=== PATIENT | female | born 2005 ===

== ENCOUNTER 2023-12-22 13:06 | Emergency (ER) | payer SELFPAY ==
[2023-12-22 13:09] VITALS: BP 113/66; PULSE 72; RESP 16; TEMP 36.3; O2SAT 99
--- NOTE | 2023-12-22 17:03 | PC.NURSE ---
pt approached triage desk and states she is going to make an appt with primary care provider and would no longer like to be seen.
== END 2023-12-22 17:32 | disposition left against medical advice (07) ==
LOC: ANHED 17:13
DX: R30.0 Dysuria (principal)
CPT/HCPCS: 99199